=== PATIENT | female | born 1980 | race Caucasian/White ===

== ENCOUNTER 2016-10-05 13:47 | Emergency (ER) | payer SELFPAY ==
[2016-10-05 14:06] VITALS: BMI 21.2
[2016-10-05] MEDS ORDERED: KETOROLAC TROMETHAMINE 30 MG/1 ML VIAL IVPUSH ONE (14:12)
--- NOTE | 2016-10-05 14:20 | PDOC ---
History of Present Illness - General History Source: Patient - History of Present Illness Timing/Duration: reports: constant Quality: reports: severe <Marv Trotter - Last Filed: 10/05/16 19:01> <Maryam Worrell - Last Filed: 10/06/16 17:25> - General Chief Complaint: Pain, Acute Stated Complaint: ABD PAIN Time Seen by Provider: 10/05/16 14:00 Past History - Past Medical History Anemia: Yes GI Disorders: Yes (colitis) HTN: Yes - Surgical History Abdominal Surgery: Yes (gastric sleeve,TUMMY TUCK) - Psycho/Social/Smoking Cessation Hx Anxiety: No Suicidal Ideation: No Smoking History: Never smoked Have you smoked in the past 12 months: No Hx Alcohol Use: No Drug/Substance Use Hx: No Substance Use Type: None <Marv Trotter - Last Filed: 10/05/16 19:01> <Maryam Worrell - Last Filed: 10/06/16 17:25> - Past Medical History Allergies/Adverse Reactions: Allergies Allergy/AdvReac Type Severity Reaction Status Date / Time No Known Allergies Allergy Verified 10/05/16 14:04 Home Medications: Ambulatory Orders NK [No Known Home Medication] 02/08/16 Review of Systems - Review of Systems Constitutional: No: Chills, Fever ABD/GI: Yes: Nausea, Abdominal cramping. No: Constipated, Diarrhea, Vomiting : No: Dysuria, Frequency, Flank Pain, Hematuria <Marv Trotter - Last Filed: 10/05/16 19:01> *Physical Exam - Vital Signs Last Vital Signs Temp Pulse Resp BP Pulse Ox 98.1 F 65 16 104/70 100 10/05/16 14:04 10/05/16 14:04 10/05/16 14:04 10/05/16 14:04 10/05/16 14:04 - Physical Exam General Appearance: Yes: Appropriately Dressed. No: Apparent Distress HEENT: positive: Normal Voice Neck: positive: Supple Respiratory/Chest: negative: Respiratory Distress Female Pelvic Exam: positive: normal external exam, cervical os closed, normal adnexa, other (IUD visualized from os, minimal thick, white clumpy discharge adherent to vaginal mucosa c/w yeast). negative: CMT, lesions, vaginal bleeding Gastrointestinal/Abdominal: positive: Normal Bowel Sounds, Tender (to R and mid suprapubic area, NT over appy), Soft. negative: Distended, Guarding, Rebound Musculoskeletal: negative: CVA Tenderness Integumentary: positive: Dry, Warm Neurologic: positive: Fully Oriented, Alert, Normal Mood/Affect <Marv Trotter - Last Filed: 10/05/16 19:01> - Vital Signs Last Vital Signs Temp Pulse Resp BP Pulse Ox 98.2 F 67 18 108/68 100 10/05/16 18:48 10/05/16 18:48 10/05/16 18:48 10/05/16 18:48 10/05/16 18:48 <Maryam Worrell - Last Filed: 10/06/16 17:25> ED Treatment Course - LABORATORY CBC & Chemistry Diagram: 10/05/16 14:45 10/05/16 14:45 <Marv Trotter - Last Filed: 10/05/16 19:01> - LABORATORY CBC & Chemistry Diagram: 10/05/16 14:45 10/05/16 14:45 - ADDITIONAL ORDERS Additional order review: 10/05/16 14:45 RBC 3.87 MCV 67.1 L MCHC 31.5 L RDW 19.2 H D MPV 9.8 Neutrophils % 64.3 D Lymphocytes % 27.4 Monocytes % 6.9 Eosinophils % 0.9 Basophils % 0.5 - Medications Given in the ED: ED Medications Discontinued Medications Generic Name Dose Route Start Last Admin Trade Name Eddieq PRN Reason Stop Dose Admin Fluconazole 150 mg 10/05/16 14:42 10/05/16 15:15 Diflucan - PO 10/05/16 14:43 150 mg ONCE ONE Administration Sodium Chloride 1,000 mls @ 1,000 mls/hr 10/05/16 15:18 10/05/16 15:19 Normal Saline - IV 10/05/16 16:17 1,000 mls/hr ASDIR STA Administration Ketorolac Tromethamine 30 mg 10/05/16 14:12 10/05/16 15:15 Toradol Injection - IVPUSH 10/05/16 14:13 30 mg ONCE ONE Administration <Maryam Worrell - Last Filed: 10/06/16 17:25> Medical Decision Making - Medical Decision Making 10/05/16 14:12 35-year-old female, s/p IUD, history of hemorrhagic cyst, presents with severe pelvic pain that started this a.m. associated with nausea, feels like her cyst as per patient. Patient also has been having some thick, white discharge that started 4 days ago. No foul odor. States she self treated with 1 day Monistat [id number], which included an ovule and cream but states she developed external irritation that resolved when she stopped using cream. States she went to see her LINK KNITTING MACHINE OPERATOR 3 days ago who did blood work and cultures but patient still waiting for results. Patient is sexually active with male partner and denies history of STDs See exam Pelvic pain w/ vag discharge Thick white discharge in vaginal vault which is c/w mckenna, no CMT/adnexal ttp to suspect PID at this time, possibly recurrent hemorrhagic cyst, less likely uti or appy, low risk for preg as IUD in place though more at risk for ectopic -upreg -pain control -consider 1 dose diflucan for mckenna while in ED -labs including std cxs -US 10/05/16 14:55 10/05/16 15:18 10/05/16 18:53 Ultrasound read as multiple bilateral ovarian follicles/cysts with no sign of hemorrhage or debris, +small amount of free pelvic fluid. Of note, hemoglobin 8. Baseline in the past has been between 9 and 10. Patient states she is aware of hemoglobin of 8 as was told to her by her LINK KNITTING MACHINE OPERATOR recently. States she has heavy menses but not currently on iron pills for unclear reasons. Patient feels better at this time and stable for discharge with close LINK KNITTING MACHINE OPERATOR follow-up 10/05/16 19:12 10/05/16 19:13 <Marv Trotter - Last Filed: 10/05/16 19:01> *DC/Admit/Observation/Transfer <Marv Trotter - Last Filed: 10/05/16 19:01> - Attestations Physician Attestion: I reviewed the case with the mid-level practitioner and agree with the mid- level practitioner's assessment, diagnosis and disposition. <Maryam Worrell - Last Filed: 10/06/16 17:25> Diagnosis at time of Disposition: Pelvic pain - Discharge Dispostion Disposition: HOME Condition at time of disposition: Improved - Patient Instructions Printed Discharge Instructions: Ovarian Cyst, Vaginal Yeast Infection Additional Instructions: Take 600-800 mg of motrin for pain as needed and follow up with your LINK KNITTING MACHINE OPERATOR next week Print Language: [place]
[2016-10-05] MEDS ORDERED: FLUCONAZOLE 50 MG TABLET PO ONE (14:42)
[2016-10-05] MEDS ORDERED: FLUCONAZOLE 100 MG TABLET (UD) ONE (15:02)
[2016-10-05] MEDS ORDERED: KETOROLAC TROMETHAMINE 30 MG/1 ML VIAL ONE (15:02)
[2016-10-05] MEDS ORDERED: SODIUM CHLORIDE 1,000 ML IV STA (15:18)
[2016-10-05 15:50] LABS: BASOPHIL 0.5 % (0-2.0); EOSINOPHIL 0.9 % (0-4.5); MCH 21.1 pg (25.7-33.7); MCHC 31.5 g/dl (32.0-36.0); MEAN CELL VOLUME 67.1 fl (80-96); MEAN PLT VOLUME 9.8 fl (7.5-11.1); NEUTROPHILS 64.3 % (42.8-82.8); PLATELET COUNT 196 K/MM3 (134-434); RDW 19.2 % (11.6-15.6); WHITE BLOOD COUNT 5.4 K/mm3 (4.0-10.0)
[2016-10-05 15:51] LABS: URINE APPEARANCE CLEAR; URINE BILIRUBIN NEGATIVE (NEGATIVE); URINE BLOOD NEGATIVE (NEGATIVE); URINE COLOR LTYELLOW; URINE GLUCOSE (UA) NEGATIVE (NEGATIVE); URINE KETONE TRACE (NEGATIVE); URINE LEUK ESTERASE NEGATIVE (NEGATIVE); URINE NITRITE NEGATIVE (NEGATIVE); URINE PROTEIN NEGATIVE (NEGATIVE); URINE UROBILINOGEN NEGATIVE mg/dL (0.2-1.0)
[2016-10-05 16:30] LABS: ALBUMIN 4.1 g/dl (3.4-5.0); ALK PHOS 50 U/L (45-117); ANION GAP 8 (8-16); BILIRUBIN,TOTAL 0.6 mg/dL (0.2-1.0); CALCIUM 9.5 mg/dL (8.5-10.1); CO2 25 mmol/L (21-32); CREATININE 0.8 mg/dL (0.55-1.02); GLUCOSE,RANDOM 84 mg/dL (74-106); SGOT/AST 23 U/L (15-37); SGPT/ALT 29 U/L (12-78); TOT PROT 7.7 g/dl (6.4-8.2)
[2016-10-05 17:31] LABS: PLATELET ESTIMATE ADEQUATE (NORMAL)
[2016-10-05 17:32] LABS: ANISOCYTOSIS 1+; HYPOCHROMIA 2+; MICROCYTOSIS 1+
[2016-10-05 18:49] VITALS: BP 108/68; PULSE 67; TEMP 98.2
== END 2016-10-05 19:21 | disposition home or self-care (01) ==
LOC: JER 13:47
PROC: 3E0333Z Introduction of Anti-inflammatory into Peripheral Vein, Percutaneous Approach (ICD-10-PCS; principal; 2016-10-05)
PROC: 3E0337Z Introduction of Electrolytic and Water Balance Substance into Peripheral Vein, Percutaneous Approach (ICD-10-PCS; 2016-10-05)
DX: R10.2 Pelvic and perineal pain (principal); D64.9 Anemia, unspecified; I10 Essential (primary) hypertension; Z98.84 Bariatric surgery status; K52.9 Noninfective gastroenteritis and colitis, unspecified
CPT/HCPCS: 36415; 76830-TC; 76856-TC; 80053; 81003; 84703; 85025; 87491; 87591; 99283-25

== ENCOUNTER 2017-03-27 12:37 | Emergency (ER) | payer OTHER ==
[2017-03-27 12:53] VITALS: BP 106/59; PULSE 79; TEMP 97.5; BMI 20.9
--- NOTE | 2017-03-27 14:31 | PDOC ---
History of Present Illness - General Chief Complaint: Lightheaded Stated Complaint: DIZZINESS (REFERRED) Time Seen by Provider: 03/27/17 14:10 History Source: Patient Exam Limitations: No Limitations - History of Present Illness Initial Comments: 03/27/17 14:24 Patient is a [36-year-old female with history of anemia denies any other significant medical history currently takes iron daily presents for evaluation of dizziness, cough, vision changes, palpitations, occipital headache, flank pain, tingling to her upper extremities for 3 days. Patient denies any chest pain or shortness of breath, no jaw pain, no upper back pain. No nausea vomiting or diarrhea does have a moist cough. Her coworker was diagnosed with the flu. Patient was initially seen at urgent care glucose was 69 EKG was normal with IN 108 QRS of 86 MS. Sinus rhythm with a normal EKG.] Past Medical History: [Denies]. Allergies: No known allergies Medications: [Iron] Family History: Non-contributory Social History: Denies smoking, alcohol use, or IVDU Vital signs on arrival are [notable for pulse of 79.] Review of Systems GENERAL/CONSTITUTIONAL: [No fever or chills. No weakness. No weight change.] HEAD, EYES, EARS, NOSE AND THROAT: [No change in vision. No ear pain or discharge. No sore throat. ] CARDIOVASCULAR: [No chest pain or shortness of breath.] RESPIRATORY: [No cough, wheezing, or hemoptysis.] GASTROINTESTINAL: [No nausea, vomiting, diarrhea or constipation. No rectal bleeding.] GENITOURINARY: [No dysuria, frequency, or change in urination.] MUSCULOSKELETAL: [No joint or muscle swelling or pain. No neck or back pain.] SKIN AND BREASTS: [No rash or easy bruising.] NEUROLOGIC: [No headache, vertigo, loss of consciousness, or loss of sensation.] PSYCHIATRIC: [No depression or anxiety.] ENDOCRINE: [No increased thirst. No abnormal weight change.] HEMATOLOGIC/LYMPHATIC: [No anemia, easy bleeding, or history of blood clots.] ALLERGIC/IMMUNOLOGIC: [No hives or skin allergy. No latex allergy.] Physical Exam: GENERAL: [The patient is awake, alert, and fully oriented, in no acute distress. ] HEAD: [Normal with no signs of trauma.] EYES: [Pupils equal, round and reactive to light, extraocular movements intact, sclera anicteric, conjunctiva clear.] ENT: [Ears normal, nares patent, oropharynx clear without exudates. Moist mucous membranes. No uvula deviation] NECK: [Normal range of motion, supple without lymphadenopathy, JVD, or masses.] LUNGS: [Breath sounds equal, clear to auscultation bilaterally. No wheezes, and no crackles.] HEART: [Regular rate and rhythm, normal S1 and S2 without murmur, rub or gallop. ] ABDOMEN: [Soft, nontender, normoactive bowel sounds. No guarding, no rebound. No masses. No bruising or abrasions] RECTAL : [Guaiac negative, normal rectal tone.] MUSCULOSKELETAL: [Normal range of motion, no edema. No clubbing or cyanosis. No cords, erythema, or tenderness. No CVA Tenderness with fist.] NEUROLOGICAL: [Cranial nerves II through XII grossly intact. Normal speech, normal gait. Romberg negative] PSYCH: [Normal mood, normal affect.] SKIN: [Warm, Dry, normal turgor, no rashes or lesions noted.] Past History - Past Medical History Allergies/Adverse Reactions: Allergies Allergy/AdvReac Type Severity Reaction Status Date / Time No Known Allergies Allergy Verified 03/27/17 12:46 Home Medications: Ambulatory Orders NK [No Known Home Medication] 02/08/16 Anemia: Yes COPD: No GI Disorders: Yes (colitis) HTN: Yes Psychiatric Problems: Yes (Anxiety) - Surgical History Abdominal Surgery: Yes (gastric sleeve,TUMMY TUCK) - Immunization History Immunization Up to Date: Yes - Suicide/Smoking/Psychosocial Hx Smoking History: Never smoked Have you smoked in the past 12 months: No Information on smoking cessation initiated: No Hx Alcohol Use: No Drug/Substance Use Hx: No Substance Use Type: None *Physical Exam - Vital Signs Last Vital Signs Temp Pulse Resp BP Pulse Ox 97.5 F L 79 17 106/59 100 03/27/17 12:47 03/27/17 12:47 03/27/17 12:47 03/27/17 12:47 03/27/17 12:47 ED Treatment Course - LABORATORY CBC & Chemistry Diagram: 03/27/17 14:45 03/27/17 14:45 Medical Decision Making - Medical Decision Making 03/27/17 14:32 A/P: Patient here for evaluation of dizziness, numbness and tingling to hands, cough, was supposed to influenza. Will perform urinalysis, urine culture, CBC, CMP, rapid influenza. Consider CT scan of head is negative 03/27/17 16:50 Laboratory Results - last 24 hr 03/27/17 03/27/17 03/27/17 14:45 14:45 14:45 WBC 6.8 RBC 4.37 Hgb 11.0 D Hct 34.7 D MCV 79.4 L MCH 25.1 L D MCHC 31.6 L RDW 13.9 D Plt Count 127 L D MPV 9.9 Neutrophils % 62.0 Lymphocytes % 27.1 Monocytes % 9.6 Eosinophils % 1.1 Basophils % 0.2 Sodium 139 Potassium 3.9 Chloride 106 Carbon Dioxide 26 Anion Gap 7 L BUN 12 Creatinine 1.0 Creat Clearance w eGFR > 60 Random Glucose 84 Calcium 8.7 Total Bilirubin 0.6 AST 19 ALT 27 Alkaline Phosphatase 57 Creatine Kinase 105 Troponin I < 0.02 Total Protein 7.9 Albumin 4.3 Urine Color Straw Urine Appearance Clear Urine pH 7.0 Ur Specific [place] 1.011 Urine Protein Negative Urine Glucose (UA) Negative Urine Ketones Negative Urine Blood Negative Urine Nitrite Negative Urine Bilirubin Negative Urine Urobilinogen Negative Ur Leukocyte Esterase Negative Urine HCG, Qual Negative CT scan is negative for acute intracranial pathology. Rapid influenza is negative. TSH was added and still pending cardiac enzymes unremarkable. 03/27/17 17:34 TSH is normal. I will discharge patient home with strict follow-up instructions for tomorrow patient will need further evaluation for her anemia. No headache, no nausea vomiting, no unsteady gait. I discussed the physical exam findings, ancillary test results and final diagnoses with the patient. I answered all of the patient's questions. The patient was satisfied with the care received and felt comfortable with the discharge plan and treatment plan. The patient will call to arrange follow-up and will return to the Emergency Department with any new, persistent or worsening symptoms. 03/27/17 19:21 *DC/Admit/Observation/Transfer Diagnosis at time of Disposition: Anemia Qualifiers: Anemia type: iron deficiency Iron deficiency anemia type: other iron deficiency Qualified Code(s): D50.8 - Other iron deficiency anemias - Discharge Dispostion Disposition: HOME Condition at time of disposition: Stable Admit: No - Referrals Referrals: Molina Bass MD [Staff Physician] - - Patient Instructions Additional Instructions: Follow up tomorrow in the office of Dr. Bass If any chest pain, shortness of breath, increased headache, or any other concerns return to ER - Post Discharge Activity Forms/Work/School Notes: Back to Work
[2017-03-27 14:53] LABS: BASO % 0.2 % (0-2.0); EOS % 1.1 % (0-4.5); HEMATOCRIT 34.7 % (32.4-45.2); LYMPH % 27.1 % (8-40); MCH 25.1 pg (25.7-33.7); MCHC 31.6 g/dl (32.0-36.0); MEAN CELL VOLUME 79.4 fl (80-96); MEAN PLT VOLUME 9.9 fl (7.5-11.1); MONO % 9.6 % (3.8-10.2); PLATELET COUNT 127 K/MM3 (134-434); RBC 4.37 M/mm3 (3.60-5.2); RDW 13.9 % (11.6-15.6); WHITE BLOOD COUNT 6.8 K/mm3 (4.0-10.0)
[2017-03-27 14:57] LABS: ADD RBC MORPHOLOGY YES
[2017-03-27 14:58] LABS: HCG,QUALITATIVE URINE NEGATIVE; URINE APPEARANCE CLEAR; URINE BILIRUBIN NEGATIVE (NEGATIVE); URINE BLOOD NEGATIVE (NEGATIVE); URINE COLOR STRAW; URINE GLUCOSE (UA) NEGATIVE (NEGATIVE); URINE KETONE NEGATIVE (NEGATIVE); URINE LEUK ESTERASE NEGATIVE (NEGATIVE); URINE NITRITE NEGATIVE (NEGATIVE); URINE PROTEIN NEGATIVE (NEGATIVE); URINE UROBILINOGEN NEGATIVE mg/dL (0.2-1.0)
[2017-03-27 15:30] LABS: ALBUMIN 4.3 g/dl (3.4-5.0); ANION GAP 7 (8-16); BLOOD UREA NITROGEN 12 mg/dL (7-18); CALCIUM 8.7 mg/dL (8.5-10.1); CHLORIDE 106 mmol/L (98-107); CO2 26 mmol/L (21-32); GLUCOSE,RANDOM 84 mg/dL (74-106); POTASSIUM 3.9 mmol/L (3.5-5.1); SGOT/AST 19 U/L (15-37); SODIUM 139 mmol/L (136-145)
[2017-03-27 16:16] LABS: ALK PHOS 57 U/L (45-117); BILIRUBIN,TOTAL 0.6 mg/dL (0.2-1.0); SGPT/ALT 27 U/L (12-78); TOT PROT 7.9 g/dl (6.4-8.2)
[2017-03-27 16:56] LABS: PLATELET ESTIMATE SLT DECREASE
[2017-03-27] MEDS ORDERED: IBUPROFEN 600 MG TABLET (FP) PO ONE ×2 (17:57→17:58)
== END 2017-03-27 18:01 | disposition home or self-care (01) ==
LOC: JERFT 12:37
DX: D50.8 Other iron deficiency anemias (principal)
CPT/HCPCS: 36415; 70450-TC; 80053; 81003; 82550; 84443; 84484; 84703; 85025; 87086; 87804; 99281-25

== ENCOUNTER 2018-01-23 14:39 | Observation (INO) | payer BC, OTHER ==
--- NOTE | 2018-01-23 14:59 | PDOC ---
Rapid Medical Evaluation Chief Complaint: Pain, Acute Time Seen by Provider: 01/23/18 14:53 Medical Evaluation: Allergies Allergy/AdvReac Type Severity Reaction Status Date / Time No Known Allergies Allergy Verified 01/23/18 14:51 Vital Signs Temp Pulse Resp BP Pulse Ox 99.0 F 79 16 96/44 L 100 01/23/18 14:51 01/23/18 14:51 01/23/18 14:51 01/23/18 14:51 01/23/18 14:51 01/23/18 14:55 I have performed a brief in-person evaluation of this patient. The patient presents with a chief complaint of: h/o colitis present with LLQ pain, nausea and diarrhea Pertinent physical exam findings:A&O x 3. afebrile I have ordered the following: cbc,cmp, UA, Uhcg The patient will proceed to the ED for further evaluation. Discharge Disposition - Diagnosis Colitis, LLQ abdominal pain - Referrals - Patient Instructions - Post Discharge Activity
[2018-01-23 15:42] LABS: BASO % 0.5 % (0-2.0); EOS % 1.4 % (0-4.5); HEMATOCRIT 25.6 % (32.4-45.2); HEMOGLOBIN 7.7 GM/dL (10.7-15.3); LYMPH % 37.1 % (8-40); MCHC 29.9 g/dl (32.0-36.0); MEAN CELL VOLUME 67.1 fl (80-96); MEAN PLT VOLUME 10.2 fl (7.5-11.1); MONO % 13.5 % (3.8-10.2); NEUT % 47.5 % (42.8-82.8); PLATELET COUNT 147 K/MM3 (134-434); RBC 3.82 M/mm3 (3.60-5.2); RDW 19.5 % (11.6-15.6); WHITE BLOOD COUNT 3.2 K/mm3 (4.0-10.0)
[2018-01-23 15:44] LABS: HCG,QUALITATIVE URINE Negative
[2018-01-23 16:04] LABS: URINE APPEARANCE CLEAR; URINE BILIRUBIN NEGATIVE (<2.0 mg/dL); URINE COLOR YELLOW; URINE GLUCOSE (UA) NEGATIVE (NEGATIVE); URINE KETONE NEGATIVE (NEGATIVE); URINE LEUK ESTERASE NEGATIVE (NEGATIVE); URINE NITRITE NEGATIVE (NEGATIVE); URINE PROTEIN NEGATIVE (NEGATIVE)
[2018-01-23] MEDS ORDERED: KETOROLAC TROMETHAMINE 30 MG/1 ML VIAL IVPUSH ONE (16:06)
[2018-01-23] MEDS ORDERED: SODIUM CHLORIDE 1,000 ML IV STA (16:06)
[2018-01-23 16:12] LABS: ALBUMIN 3.7 g/dl (3.4-5.0); ALK PHOS 51 U/L (45-117); ANION GAP 7 MMOL/L (8-16); BILIRUBIN,TOTAL 0.4 mg/dL (0.2-1); BLOOD UREA NITROGEN 11 mg/dL (7-18); CALCIUM 8.6 mg/dL (8.5-10.1); CHLORIDE 106 mmol/L (98-107); CO2 26 mmol/L (21-32); CREATININE 0.8 mg/dL (0.55-1.3); GLUCOSE,RANDOM 80 mg/dL (74-106); POTASSIUM 3.8 mmol/L (3.5-5.1); SGOT/AST 21 U/L (15-37); SGPT/ALT 20 U/L (13-61); SODIUM 138 mmol/L (136-145); TOT PROT 7.1 g/dl (6.4-8.2)
[2018-01-23] MEDS ORDERED: KETOROLAC TROMETHAMINE 30 MG/1 ML VIAL ONE (16:41)
--- NOTE | 2018-01-23 18:05 | PDOC ---
History of Present Illness - General Chief Complaint: Pain, Acute Stated Complaint: PAIN Time Seen by Provider: 01/23/18 14:53 History Source: Patient Exam Limitations: No Limitations - History of Present Illness Travel History: No Initial Comments: 01/23/18 17:01 37-year-old female presents to ED with complaints of left lower quadrant pain associated with diarrhea for the past 4 days. Patient also complaining of mild nausea. Patient states has had regular menses and is on her last therefore cycle presently. Patient denies fever, chills, urinary complaints, back pain vaginal discharge, upper abdominal pain. Patient does state history of colitis and states symptoms of sharp cramping is similar to previous episode in 2016. Patient states history of anemia but does not take iron pills secondary to constipation and abdominal pain side effect. Timing/Duration: reports: getting worse Quality: reports: moderate, cramping, sharpness Abdominal Pain Onset Location: reports: LLQ Pain Radiation: reports: no radiation Activities at Onset: reports: none Aggravating Factors: improves with: None Alleviating Factors: improves with: None Past History - Past Medical History Allergies/Adverse Reactions: Allergies Allergy/AdvReac Type Severity Reaction Status Date / Time No Known Allergies Allergy Verified 01/23/18 14:51 Home Medications: Ambulatory Orders NK [No Known Home Medication] 02/08/16 Anemia: Yes COPD: No GI Disorders: Yes (colitis) HTN: Yes Psychiatric Problems: Yes (Anxiety) - Surgical History Abdominal Surgery: Yes (gastric sleeve,TUMMY TUCK) - Immunization History Immunization Up to Date: Yes - Suicide/Smoking/Psychosocial Hx Smoking History: Never smoked Have you smoked in the past 12 months: No Information on smoking cessation initiated: No Hx Alcohol Use: No Drug/Substance Use Hx: No Substance Use Type: None Patient Lives Alone: No Lives with/in: spouse/SO Abd/GI Specific PMHX - Complaint Specific PMHX Colitis: Yes Review of Systems - Review of Systems Able to Perform ROS?: No Is the patient limited Polish proficient: No Constitutional: No: Symptoms Reported HEENTM: No: Symptoms Reported Respiratory: No: Symptoms reported Cardiac (ROS): No: Symptoms Reported ABD/GI: No: Symptoms Reported : No: Symptoms Reported Musculoskeletal: No: Symptoms Reported Integumentary: No: Symptoms Reported Neurological: No: Symptoms reported Endocrine: No: Symptoms Reported *Physical Exam - Vital Signs Last Vital Signs Temp Pulse Resp BP Pulse Ox 99.0 F 71 16 117/87 100 01/23/18 14:51 01/23/18 17:48 01/23/18 17:48 01/23/18 17:48 01/23/18 17:48 - Physical Exam General Appearance: Yes: Nourished, Appropriately Dressed. No: Apparent Distress HEENT: positive: EOMI, MARY. negative: Pale Conjunctivae Neck: positive: Supple Respiratory/Chest: positive: Lungs Clear, Normal Breath Sounds. negative: Respiratory Distress, Accessory Muscle Use Cardiovascular: positive: Regular Rhythm, Regular Rate. negative: Murmur Gastrointestinal/Abdominal: positive: Soft. negative: Tenderness Musculoskeletal: negative: CVA Tenderness Extremity: positive: Normal Capillary Refill. negative: Pedal Edema Integumentary: positive: Normal Color, Warm, Moist Neurologic: positive: Normal Mood/Affect, Motor Strength 5/5 Moderate Sedation - Procedure Monitoring Vital Signs: Procedure Monitoring Vital Signs Temperature 99.0 F 01/23/18 14:51 Pulse Rate 71 01/23/18 17:48 Respiratory Rate 16 01/23/18 17:48 Blood Pressure 117/87 01/23/18 17:48 O2 Sat by Pulse Oximetry (%) 100 01/23/18 17:48 ED Treatment Course - LABORATORY CBC & Chemistry Diagram: 01/23/18 15:30 01/23/18 15:30 - ADDITIONAL ORDERS Additional order review: Laboratory Results 01/23/18 01/23/18 15:30 15:30 Sodium 138 Potassium 3.8 Chloride 106 Carbon Dioxide 26 Anion Gap 7 L BUN 11 Creatinine 0.8 Creat Clearance w eGFR > 60 Random Glucose 80 Calcium 8.6 Total Bilirubin 0.4 AST 21 ALT 20 Alkaline Phosphatase 51 Total Protein 7.1 Albumin 3.7 Urine Color Yellow Urine Appearance Clear Urine pH 5.0 D Ur Specific [place] 1.024 Urine Protein Negative Urine Glucose (UA) Negative Urine Ketones Negative Urine Blood Negative Urine Nitrite Negative Urine Bilirubin Negative Urine Urobilinogen 2.0 H Ur Leukocyte Esterase Negative Urine HCG, Qual Negative 01/23/18 15:30 RBC 3.82 MCV 67.1 L MCHC 29.9 L RDW 19.5 H MPV 10.2 Neutrophils % 47.5 D Lymphocytes % 37.1 D Monocytes % 13.5 H Eosinophils % 1.4 Basophils % 0.5 - RADIOLOGY Radiology Studies Ordered: Category Date Time Status ABDOMEN & PELVIS CT WITH CONTR [CT] Stat CT Scan 01/23/18 16:08 Ordered - Medications Given in the ED: ED Medications Discontinued Medications Generic Name Dose Route Start Last Admin Trade Name Eddieq PRN Reason Stop Dose Admin Sodium Chloride 1,000 mls @ 1,000 mls/hr 01/23/18 16:06 01/23/18 16:48 Normal Saline - IV 01/23/18 17:05 1,000 mls/hr ASDIR STA Administration Ketorolac Tromethamine 30 mg 01/23/18 16:06 01/23/18 16:48 Toradol Injection - IVPUSH 01/23/18 16:07 30 mg ONCE ONE Administration Medical Decision Making - Medical Decision Making 01/23/18 17:12 Chief complaint: Left lower quadrant pain with diarrhea for the past 4 days. Patient with history of colitis. Exam: Left lower quadrant tenderness no rebound no guarding, vital stable Plan: Labs, urine, IV fluids, CAT scan, 01/23/18 18:13 Laboratory Tests 09/08/15 09/19/15 10/05/16 06:00 21:30 14:45 WBC Hgb 11.3 D 10.8 8.2 L D Hct MCV MCH MCHC RDW Monocytes % Sodium Potassium Chloride Carbon Dioxide Anion Gap BUN Creatinine Random Glucose Calcium AST ALT Alkaline Phosphatase Total Protein Albumin Urine Bilirubin Urine Urobilinogen Ur Leukocyte Esterase Urine HCG, Qual 03/27/17 01/23/18 01/23/18 14:45 15:30 15:30 WBC 3.2 L Hgb 11.0 D 7.7 L Hct 25.6 L D MCV 67.1 L MCH 20.0 L D MCHC 29.9 L RDW 19.5 H Monocytes % 13.5 H Sodium Potassium Chloride Carbon Dioxide Anion Gap BUN Creatinine Random Glucose Calcium AST ALT Alkaline Phosphatase Total Protein Albumin Urine Bilirubin Negative Urine Urobilinogen 2.0 H Ur Leukocyte Esterase Negative Urine HCG, Qual Negative 01/23/18 15:30 WBC Hgb Hct MCV MCH MCHC RDW Monocytes % Sodium 138 Potassium 3.8 Chloride 106 Carbon Dioxide 26 Anion Gap 7 L BUN 11 Creatinine 0.8 Random Glucose 80 Calcium 8.6 AST 21 ALT 20 Alkaline Phosphatase 51 Total Protein 7.1 Albumin 3.7 Urine Bilirubin Urine Urobilinogen Ur Leukocyte Esterase Urine HCG, Qual Patient has no complaints of fatigue, weakness, shortness of breath, and understands by not taking her iron and eating high iron foods, the anemia will continue and may worsen *DC/Admit/Observation/Transfer Diagnosis at time of Disposition: Colitis, LLQ abdominal pain - Referrals - Patient Instructions - Post Discharge Activity
[2018-01-23 19:43] LABS: ANISOCYTOSIS 1+
[2018-01-23 19:44] LABS: PLATELET ESTIMATE ADEQUATE
[2018-01-23] MEDS ORDERED: ONDANSETRON 4 MG/2 ML VIAL IVPUSH ONE (19:56)
[2018-01-23] MEDS ORDERED: ONDANSETRON 4 MG/2 ML VIAL ONE (20:44)
--- NOTE | 2018-01-23 20:46 | PDOC ---
*Physical Exam - Vital Signs Last Vital Signs Temp Pulse Resp BP Pulse Ox 99.0 F 71 16 117/87 100 01/23/18 14:51 01/23/18 17:48 01/23/18 17:48 01/23/18 17:48 01/23/18 17:48 ED Treatment Course - LABORATORY CBC & Chemistry Diagram: 01/23/18 15:30 01/23/18 15:30 - ADDITIONAL ORDERS Additional order review: Laboratory Results 01/23/18 01/23/18 15:30 15:30 Sodium 138 Potassium 3.8 Chloride 106 Carbon Dioxide 26 Anion Gap 7 L BUN 11 Creatinine 0.8 Creat Clearance w eGFR > 60 Random Glucose 80 Calcium 8.6 Total Bilirubin 0.4 AST 21 ALT 20 Alkaline Phosphatase 51 Total Protein 7.1 Albumin 3.7 Urine Color Yellow Urine Appearance Clear Urine pH 5.0 D Ur Specific [place] 1.024 Urine Protein Negative Urine Glucose (UA) Negative Urine Ketones Negative Urine Blood Negative Urine Nitrite Negative Urine Bilirubin Negative Urine Urobilinogen 2.0 H Ur Leukocyte Esterase Negative Urine HCG, Qual Negative 01/23/18 15:30 RBC 3.82 MCV 67.1 L MCHC 29.9 L RDW 19.5 H MPV 10.2 Neutrophils % 47.5 D Lymphocytes % 37.1 D Monocytes % 13.5 H Eosinophils % 1.4 Basophils % 0.5 - RADIOLOGY Radiology Studies Ordered: Category Date Time Status ABDOMEN US -LIMITED [US] Stat Ultrasound 01/23/18 19:53 Ordered - Medications Given in the ED: ED Medications Discontinued Medications Generic Name Dose Route Start Last Admin Trade Name Freq PRN Reason Stop Dose Admin Sodium Chloride 1,000 mls @ 1,000 mls/hr 01/23/18 16:06 01/23/18 16:48 Normal Saline - IV 01/23/18 17:05 1,000 mls/hr ASDIR STA Administration Ketorolac Tromethamine 30 mg 01/23/18 16:06 01/23/18 16:48 Toradol Injection - IVPUSH 01/23/18 16:07 30 mg ONCE ONE Administration Medical Decision Making - Medical Decision Making Patient signed out to me by BASILIO Campoverde. Patient reassessed and appears comfortable CT A/P resulted with no evidence of colitis. Small amount of pericholecystic fluid noted (uncertain if due to IV fluid administration) On PE, patient with +TTP along RUQ though states at rest, does not feel pain there Patient sent for RUQ sono to r/o cholecystitis 01/23/18 20:29 RUQ sono shows no gallstones, small amount of sludge, trace amount of pericholecystic fluid Given equivocal findings, will admit patient as observation for HIDA scan 01/23/18 22:21 *DC/Admit/Observation/Transfer Diagnosis at time of Disposition: LLQ abdominal pain, RUQ abdominal pain - Discharge Dispostion Decision to Admit order: Yes - Referrals - Patient Instructions - Post Discharge Activity
--- NOTE | 2018-01-24 00:28 | HP ---
CHIEF COMPLAINT: abd pain PCP: HISTORY OF PRESENT ILLNESS: Patient is a 37 y/o F w/ PMHx colitis in 2016, chronic anemia non-compliant w/ iron therapy, abdominoplasty in 2008, gastric sleeve Sx in 2016 performed in [facility] 2 months prior to onset of colitis, now p/w 1 week dull continuous abdominal pain 8/10 in severity primarily in LLQ but present throughout abdomen. Additionally complains of watery diarrhea and nausea over the same period, limited PO intake d/t fear of provoking diarrhea. LMP began 5 days ago and ended today with heavier passage of blood than usual. No f/c, no CP , no SOB, no shoulder pain. In ED received 1L NS bolus, ketorolac, zofran. RUQ US demonstrated no cholelithiasis, a small amount of biliary sludge, and trace pericholecystic fluid. CT a/p demonstrated no enterocolitis, identified gastric sleeve post-surgical changes, and found a small amount of pericholecystic fluid . CBC showed Hb 7.7 and WBC 3.2, otherwise labs and VS wnl. ER course was notable for: (1) US and CT equivocal for possible cholecystitis (2) (3) Recent Travel: PAST MEDICAL HISTORY: As per HPI PAST SURGICAL HISTORY: As per HPI Social History: Smoking: current occasional cigar smoker Alcohol: none Drugs: none Family History: Allergies No Known Allergies Allergy (Verified 01/23/18 14:51) HOME MEDICATIONS: Home Medications Medication Instructions Recorded NK [No Known Home Medication] 02/08/16 REVIEW OF SYSTEMS As per HPI PHYSICAL EXAMINATION Vital Signs - 24 hr 01/23/18 01/23/18 14:51 17:48 Temperature 99.0 F Pulse Rate 79 Pulse Rate [ 71 Apical] Respiratory 16 16 Rate Blood Pressure 96/44 L Blood Pressure 117/87 [Right] O2 Sat by Pulse 100 100 Oximetry (%) GENERAL: A&O x 3, NAD, no pallor, no dizziness, no fatigue, no lightheadedness, no anemic symptoms generally HEAD: NC/AT EYES: PERRLA, EOMI EARS, NOSE, THROAT: Ears normal, nares patent, oropharynx clear without exudates. Moist mucous membranes. NECK: Normal range of motion, supple without lymphadenopathy, JVD, or masses. LUNGS: CTA b/l HEART: RRR no m/r/g ABDOMEN: +bs, soft, non-distended, diffusely tender including RUQ and epigastrum , negative Steele's sign MUSCULOSKELETAL: Normal range of motion at all joints. No bony deformities or tenderness. No CVA tenderness. UPPER EXTREMITIES: 2+ pulses, warm, well-perfused. No cyanosis. No clubbing. No peripheral edema. LOWER EXTREMITIES: 2+ pulses, warm, well-perfused. No calf tenderness. No peripheral edema. NEUROLOGICAL: care center manager, motor, sensory systems without focal deficit PSYCHIATRIC: Cooperative. Good eye contact. Appropriate mood and affect. SKIN: Warm, dry, normal turgor, no rashes or lesions noted, normal capillary refill. Laboratory Results - last 24 hr 01/23/18 01/23/18 01/23/18 15:30 15:30 15:30 WBC 3.2 L RBC 3.82 Hgb 7.7 L Hct 25.6 L D MCV 67.1 L MCH 20.0 L D MCHC 29.9 L RDW 19.5 H Plt Count 147 MPV 10.2 Absolute Neuts (auto) 1.5 Neutrophils % 47.5 D Lymphocytes % 37.1 D Monocytes % 13.5 H Eosinophils % 1.4 Basophils % 0.5 Nucleated RBC % 0 Hypochromia 2+ Platelet Estimate Adequate Anisocytosis 1+ Sodium 138 Potassium 3.8 Chloride 106 Carbon Dioxide 26 Anion Gap 7 L BUN 11 Creatinine 0.8 Creat Clearance w eGFR > 60 Random Glucose 80 Calcium 8.6 Total Bilirubin 0.4 AST 21 ALT 20 Alkaline Phosphatase 51 Total Protein 7.1 Albumin 3.7 Urine Color Yellow Urine Appearance Clear Urine pH 5.0 D Ur Specific [place] 1.024 Urine Protein Negative Urine Glucose (UA) Negative Urine Ketones Negative Urine Blood Negative Urine Nitrite Negative Urine Bilirubin Negative Urine Urobilinogen 2.0 H Ur Leukocyte Esterase Negative Urine HCG, Qual Negative ASSESSMENT/PLAN: 37 y/o F w/ PMHx colitis and anemia p/w 1 week abdominal pain, nausea, and diarrhea. Initial w/u reveals RUQ tenderness and small volume pericholecystic fluid. #abd pain/n/d -most likely Dx viral gastroenteritis -equivocal imaging studies warrant HIDA study for r/o acute cholecystitis -pericholecystic fluid may be result of questionable gastric sleeve procedure -warrants obs admission for r/o cholecystitis -surgery consulted, will see patient in AM -NPO per surgery instructions -Zofran PRN -LR @ 75 #anemia -asymptomatic, likely chronic, patient has just completed unusually heavy menstruation -FOBT pending -monitor CBC and transfuse if <7 -resume iron therapy when eligible for PO intake -counseled on adherence to iron therapy #FEN -LR @ 75 -monitor and replete lytes -NPO pending surgical evaluation #PPx -SCDs, no pharmacologic AC pending surgical evaluation -GI: not indicated #code -full #dispo -obs Visit type - Emergency Visit Emergency Visit: Yes Care time: The patient presented to the Emergency Department on the above date and was hospitalized for further evaluation of their emergent condition. - New Patient This patient is new to me today: Yes Date on this admission: 01/24/18 - Critical Care Critical Care patient: No
[2018-01-24] MEDS: LACTATED RINGERS SOLUTION 1,000 ML IV SCH (00:44)
--- NOTE | 2018-01-24 01:45 | PN ---
Teaching Attending Note Name of Resident: Jake Barbosa ATTENDING PHYSICIAN STATEMENT I saw and evaluated the patient. I reviewed the resident's note and discussed the case with the resident. I agree with the resident's findings and plan as documented. SUBJECTIVE: Seen and examined; please see resident note for further historical details. In summation this is a 37 y/o female with a PMH of anemia, thrombocytopenia, gastric sleeve 2016. She presents with 1 week of waxing and waning abdominal pain that is in the RUQ and LLQ; when I spoke with her, though, it is mostly restricted to the RUQ. She agrees that the pain has been present for about a week and that nothing makes it better but that it does get worse with eating and that she has had to take smaller meals due to this. she has no other complaints tonight. In reviewing her chart she has had colitis here in the past in 2016 after the aforementioned surgical procedure2 months prior in the [place]. She is hemodynamically stable and afebrile without any white count. CT shows sludging and pericholecystic fluid without thickened jean and normal CBD; US is equivicol. Surgery was phoned by the ER and they requested that the patient be placed NPO and will see her in AM. DEBBIE ordered. Never had prior abdominal procedures. Admitting to medicine with surgical consultation. 10 sys ROS done and negative aside from HPI PMH and PSH reviewed FH asked and noncontributory Social history denies alcohol or tobacco abuse OBJECTIVE: Vs, labs, imaging reviewed NAD, AAO, resting in bed RRR s1/2 no mgr Lungs CTAB with sym expansion No organomegaly; Right side is tender to palpation, nondistended, negative burnham's sign. CN2-12 wnl, no fnd NC AT EOMI PERRLA Normal mood, appropriate behavior Labs show Microcytic anemia with mcv 60s and hb 7s; borderline throbocytopenia. WBC wnl, no neutrophilia. ESR/CRP, anemia workup pending. CT reviewed; shows gastric sleeve procedure and a small amount of pericholecystic fluid which is artifact vs. pathological. US reviewed; equivical to CT. Trace amount of pericholecystic fluid. EKG reviewed ASSESSMENT AND PLAN: This is a 37 y/o CF presenting with 1 week of waxing and waning abdominal pain found tohave pericholecystic fluid but no white count, no fever. Needs HIDA to r/o acute GB pathology. 1) Abdominal Pain, r/o cholecystitis -As no wbc, no fever, no radiographic proof of definitive infection and only sludge without stones, we will go ahead and hold off on abx; of course will cover if clinically warranted. -HIDA ordered; NPO per sgy. Surgical consult in AM. -Monitor VS, trend CBC. PRN APAP, Zofran -Commented that the trace pericholecystic fluid could be artifact. 2) Chronic anemia -Checking anemia workup; pending. Keep hb >7 3) S/P sleeve gastrectomy -Monitor; when not NPO small meals 4) Borderline thrombocytopenia -Also seen in 2012 admission; no bleeding now. She should followup with her primary care. Trend CBC while inpatient. Avoid chemical anticoagulation. FENA -LR@75 -Monitor and replace PRN -NPO -As tolerated Full Code
[2018-01-24 07:53] LABS: INR 0.96 (0.83-1.09); PROTHROMBIN TIME (PATIENT) 11.3 SEC (9.7-13.0)
--- NOTE | 2018-01-24 08:26 | PN ---
Physical Exam: SUBJECTIVE: Patient is a 37 y/o female with a history of colitis and anemia who is admitted for cholecystitis. Patient did not have any episodes of diarrhea overnight. She reports she still has the pain and is hungry. Patient to be evaluated by surgery this morning. OBJECTIVE: Vital Signs Temperature 98.1 F 01/24/18 06:51 Pulse Rate 62 01/24/18 06:51 Respiratory Rate 18 01/24/18 06:51 Blood Pressure 104/61 01/24/18 06:51 O2 Sat by Pulse Oximetry (%) 100 01/24/18 06:51 GENERAL: The patient is awake, alert, and fully oriented, in no acute distress. HEAD: Normal with no signs of trauma. EYES: PERRL, extraocular movements intact. LUNGS: Breath sounds equal, clear to auscultation bilaterally, no wheezes, no crackles, no accessory muscle use. HEART: Regular rate and rhythm, S1, S2 without murmur, rub or gallop. ABDOMEN: positive bowel sounds, tendernes sin RUQ and LUQ, positive murphys sign , positive rebound, CVA tenderness bilaterally RECTAL: no external lesions, no internal masses felt, no fissures noted, no blood on exam EXTREMITIES: 2+ pulses, warm, well-perfused, no edema. NEUROLOGICAL: Cranial nerves II through XII grossly intact. Normal speech, gait not observed. PSYCH: Normal mood, normal affect. SKIN: Warm, dry, normal turgor, no rashes or lesions noted CBC, BMP 01/24/18 07:05 01/24/18 07:05 Active Medications Lactated Ringer's (Lactated Ringers Solution) 1,000 mls @ 75 mls/hr IV ASDIR [facility] Last Admin: 01/24/18 00:44 Dose: 75 mls/hr Ondansetron HCl (Zofran Injection) 4 mg IVPUSH Q6H PRN PRN Reason: NAUSEA ASSESSMENT/PLAN: Patient is a 37 y/o female with a history of colitis and anemia who is admitted for cholecystitis. #abd pain, likely 2/2 to cholecystitis vs colic - Abd CT: mild periorital edema of pericholecystic fluid accumulation, small to moderate nonspecific free fluid with cul de sac, 2 mm nonobstruction left renal calculs - Abd US: no evidence of choelithiasis, small amount of inspissated bile/ sludge at base of gallbladder, possible acute cholecystitis - HIDA scan - filling of gallbladder excludes acute cystic duct obstruction - discussed with Dr. Cristina, does not believe it is cholecystitis and unlikely to be surgery candidate - full liquid diet, advance as tolerated - hx of gastric sleeve #anemia - asymptomatic - f/u iron studies - hgb 7.7 - f/u OBGYN consult, Dr. Lynn - FOBT negative #gi ppx - Protonix 40 daily #dvt ppx - SCD's Dispo: likely tomorrow, discuss with OBGYN Visit type - Emergency Visit Emergency Visit: No - New Patient This patient is new to me today: No - Critical Care Critical Care patient: No
[2018-01-24 08:38] LABS: ANION GAP 8 MMOL/L (8-16); BLOOD UREA NITROGEN 11 mg/dL (7-18); CALCIUM 8.3 mg/dL (8.5-10.1); CHLORIDE 109 mmol/L (98-107); CO2 24 mmol/L (21-32); CREATININE 0.9 mg/dL (0.55-1.3); GLUCOSE,RANDOM 74 mg/dL (74-106); LIPASE 240 U/L (73-393); MAGNESIUM 1.9 mg/dL (1.8-2.4); POTASSIUM 3.9 mmol/L (3.5-5.1); SODIUM 140 mmol/L (136-145)
[2018-01-24 09:01] LABS: BASO % 0.4 % (0-2.0); EOS % 1.7 % (0-4.5); HEMATOCRIT 24.5 % (32.4-45.2); HEMOGLOBIN 7.6 GM/dL (10.7-15.3); LYMPH % 43.5 % (8-40); MCH 20.8 pg (25.7-33.7); MEAN CELL VOLUME 67.1 fl (80-96); MEAN PLT VOLUME 11.2 fl (7.5-11.1); NEUT % 44.4 % (42.8-82.8); PLATELET COUNT 159 K/MM3 (134-434); RBC 3.65 M/mm3 (3.60-5.2); RDW 19.3 % (11.6-15.6)
[2018-01-24] MEDS: PANTOPRAZOLE SODIUM 40 MG VIAL IVPUSH SCH (11:03)
[2018-01-24] MEDS ORDERED: PANTOPRAZOLE SODIUM 40 MG VIAL ONE (11:10)
--- NOTE | 2018-01-24 11:35 | CONSULT ---
- Consultation REQUESTING PROVIDER: Hopsitalist CONSULT REQUEST: We have been asked to surgically evaluate this patient for abdominal pain. PCP:Shira Elliott HISTORY OF PRESENT ILLNESS: OBEY who is a 37 y/o female for evaluation and management of abdominal pain; 1 week of ? crampy ?abdominal pain which got worse 2 days ago and then became associated w/ nausea and vomiting and right sided back pain; she came to the ER for evaluation. She denies any other GI//FLAME CHANNELER c/o; her LMP ended a few days ago PMHx: none; PSHx: abdominoplasy/sleeve gastrectomy Home Medications Medication Instructions Recorded NK [No Known Home Medication] 02/08/16 Allergies Allergy/AdvReac Type Severity Reaction Status Date / Time No Known Allergies Allergy Verified 01/23/18 14:51 PHYSICAL EXAM: GENERAL: Awake, alert, and fully oriented, in no acute distress. HEAD: Normal with no signs of trauma. EYES: sclera anicteric, conjunctiva clear. NECK: Normal ROM, supple without lymphadenopathy, JVD, or masses. ABDOMEN: Soft, nontender, not distended, normoactive bowel sounds, no guarding, no rebound, no masses. No organomegaly. Abdominal wall changes c/w abdominoplasty; no hernias. MUSCULOSKELETAL: Normal ROM at all joints. No bony deformities or tenderness. No CVA tenderness. UPPER EXTREMITIES: 2+ pulses, warm, well-perfused. No cyanosis. Cap refill <2 seconds. No peripheral edema. LOWER EXTREMITIES: 2+ pulses, warm, well-perfused. No calf tenderness. No peripheral edema. NEUROLOGICAL: Normal speech, gait not observed. PSYCH: Cooperative. Good eye contact. Appropriate mood and affect. SKIN: Warm, dry, normal turgor, no rashes or lesions noted. Vital Signs Temperature 98.0 F 01/24/18 11:04 Pulse Rate 71 01/24/18 11:04 Respiratory Rate 18 01/24/18 11:04 Blood Pressure 107/73 01/24/18 11:04 O2 Sat by Pulse Oximetry (%) 100 01/24/18 11:04 Lab Results WBC 3.0 K/mm3 (4.0-10.0) L 01/24/18 07:05 RBC 3.65 M/mm3 (3.60-5.2) 01/24/18 07:05 Hgb 7.6 GM/dL (10.7-15.3) L 01/24/18 07:05 Hct 24.5 % (32.4-45.2) L 01/24/18 07:05 MCV 67.1 fl (80-96) L 01/24/18 07:05 MCHC 31.0 g/dl (32.0-36.0) L 01/24/18 07:05 RDW 19.3 % (11.6-15.6) H 01/24/18 07:05 Plt Count 159 K/MM3 (134-434) 01/24/18 07:05 Sodium 140 mmol/L (136-145) 01/24/18 07:05 Potassium 3.9 mmol/L (3.5-5.1) 01/24/18 07:05 Chloride 109 mmol/L (98-107) H 01/24/18 07:05 Carbon Dioxide 24 mmol/L (21-32) 01/24/18 07:05 Anion Gap 8 MMOL/L (8-16) 01/24/18 07:05 BUN 11 mg/dL (7-18) 01/24/18 07:05 Creatinine 0.9 mg/dL (0.55-1.3) 01/24/18 07:05 Random Glucose 74 mg/dL (74-106) 01/24/18 07:05 Calcium 8.3 mg/dL (8.5-10.1) L 01/24/18 07:05 Blood Type O POSITIVE 01/24/18 06:30 Antibody Screen Negative 01/24/18 06:30 INR 0.96 (0.83-1.09) 01/24/18 07:05 CT scan a/p and US reviewed; HIDA scan results pending. IMP: no evidence of an acute surgical abdomen; I doubt she has acute cholecystitis or biliary dyskinesia PLAN: Would keep NPO pending results of HIDA scan; and will f/u after that. Usama Cristina MD FACS
--- NOTE | 2018-01-24 13:13 | PN ---
Teaching Attending Note Name of Resident: Vanessa Vides ATTENDING PHYSICIAN STATEMENT I saw and evaluated the patient. I reviewed the resident's note and discussed the case with the resident. I agree with the resident's findings and plan as documented. SUBJECTIVE: No fever or chills. reports upper abd pain x 1 week. diarrhea and vomiting x 2 days. reports reflux sx . denies any NSAIDs use . denies hematochezia , melena , and hematemesis . reports heavy periods and poor nutrition OBJECTIVE: NAD , AAOx3 HEENT: NC, AT, MMM, no facial droop . CV: RRR Lungs: CTAB Abd: soft, TTP in epigastric area and RUQ, Neg Martinez's , hyperactive BS Ext: no edema, no erythema . ASSESSMENT AND PLAN: 37 y/o lady with h/o iron def anemia, heavy menses, colitis, gastric sleeve sx , and thrombocytopenia who presented with Abd pain. 1- Abd pain: no clear etiology. ? gastritis , less likely cholecystitis . No evidence of obstruction on CT scan. - follow HIDA - try PPI - if HIda is neg ,might consult GI - NPO until after HIDD results - IVF - rectal exam to be performed by resident, ? bleeding PUD - avoid NSAIDs 2- Microcytic anemia: likely due to heavy menses and malnutrition after gastric sleeve, but can't r/o slowly bleeding PUD - rectal exam. - OB - iron studies pending - not compliant with iron suppt at home 3- DVT P X: SCDS
[2018-01-24] MEDS: ACETAMINOPHEN 325 MG TABLET (FP) PO PRN (13:40)
[2018-01-24] MEDS ORDERED: ACETAMINOPHEN 325 MG TABLET (FP) ONE (13:41)
[2018-01-24] MEDS ORDERED: IRON SUCROSE INJECTION 100 MG in SODIUM CHLORIDE 95 ML IVPB ONE (16:30)
[2018-01-24] MEDS: ONDANSETRON 4 MG/2 ML VIAL IVPUSH PRN (16:40)
[2018-01-24] MEDS ORDERED: ACETAMINOPHEN 1000 MG/100 ML VIAL (NON FORMULARY) IVPB ONE (18:00)
[2018-01-24] MEDS ORDERED: ACETAMINOPHEN INJECTION 100 ML IVPB ONE (18:28)
[2018-01-24 20:56] VITALS: BMI 21.6
[2018-01-24] MEDS: SUCRALFATE 1 GM/10 ML UNIT DOSE CUPS PO SCH (22:23)
[2018-01-25] MEDS: SUCRALFATE 1 GM/10 ML UNIT DOSE CUPS PO SCH ×5 (03:22→21:37)
[2018-01-25] MEDS: LACTATED RINGERS SOLUTION 1,000 ML IV SCH (03:23)
[2018-01-25 08:15] LABS: ANION GAP 8 MMOL/L (8-16); BLOOD UREA NITROGEN 7 mg/dL (7-18); CALCIUM 8.4 mg/dL (8.5-10.1); CHLORIDE 107 mmol/L (98-107); CO2 23 mmol/L (21-32); CREATININE 0.8 mg/dL (0.55-1.3); GLUCOSE,RANDOM 79 mg/dL (74-106); POTASSIUM 3.8 mmol/L (3.5-5.1); SODIUM 139 mmol/L (136-145)
[2018-01-25] MEDS: PANTOPRAZOLE SODIUM 40 MG VIAL IVPUSH SCH (09:56)
[2018-01-25 10:00] LABS: HEMATOCRIT 22.5 % (32.4-45.2); HEMOGLOBIN 7.3 GM/dL (10.7-15.3); MCH 21.4 pg (25.7-33.7); MCHC 32.2 g/dl (32.0-36.0); MEAN CELL VOLUME 66.6 fl (80-96); MEAN PLT VOLUME 10.7 fl (7.5-11.1); PLATELET COUNT 148 K/MM3 (134-434); RBC 3.38 M/mm3 (3.60-5.2); RDW 19.4 % (11.6-15.6); WHITE BLOOD COUNT 3.3 K/mm3 (4.0-10.0)
[2018-01-25 10:10] LABS: SERUM IRON SATURATION 3 % (15-55); TOTAL IRON BINDING CAPACITY 370 ug/dL (250-450); UIBC 358 ug/dL (131-425)
--- NOTE | 2018-01-25 12:02 | CON.GI ---
Consult Consult Specialty:: GI Referred by:: Dr Guerra Reason for Consultation:: Abdominal pain, anemia - History of Present Illness Chief Complaint: LLQ quadrant and epigastric abdominal discomfort for 2 years, worse on day of admission History of Present Illness: 37 y.o. woman admitted with complaints of largely LLQ abdominal discomfort. Patient says if she eats "acid" foods she gets LLQ discomfort as well as epigastric discomfort. This has been her pattern since her gastric sleeve procedure performed 2 years ago in the [place]. Of note, she had to return to the OR the day after the initial surgery because of a leak. Of note, she has become progressively anemic over the past two years. She admits to heavy menses but does not believe they are out of the usual. She has not had an EGD since her gastric sleeve procedure and has never had a colonoscopy. Currently, she feels able to eat. 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 History of Recent Travel: Yes ([facility]) Home Medications - Allergies Allergies/Adverse Reactions: Allergies Allergy/AdvReac Type Severity Reaction Status Date / Time No Known Allergies Allergy Verified 01/23/18 14:51 - Home Medications Home Medications: Ambulatory Orders NK [No Known Home Medication] 02/08/16 Family Disease History - Family Disease History Family Disease History: Other: Father (HTN), Mother (HTN, Hypothyroidism) Review of Systems - Review of Systems Constitutional: reports: Weakness Physical Exam-GI Vital Signs: Vital Signs Temperature 98.1 F 01/25/18 08:00 Pulse Rate 82 01/25/18 08:00 Respiratory Rate 20 01/25/18 11:22 Blood Pressure 111/70 01/25/18 08:00 O2 Sat by Pulse Oximetry (%) 98 01/25/18 11:22 Constitutional: Yes: Pallor ...Rectal Exam: Yes: Deferred Labs: CBC, BMP 01/25/18 07:00 01/25/18 07:00 INR, PTT INR 0.96 (0.83-1.09) 01/24/18 07:05 Imaging - Results Cat Scan: Report Reviewed, Image Reviewed Problem List - Problems (1) LLQ abdominal pain Code(s): R10.32 - LEFT LOWER QUADRANT PAIN (2) Anemia Code(s): D64.9 - ANEMIA, UNSPECIFIED Qualifiers: Anemia type: iron deficiency Iron deficiency anemia type: other iron deficiency Qualified Code(s): D50.8 - Other iron deficiency anemias Assessment/Plan Iron deficiency anemia and LLQ discomfort. A gastric sleeve procedure by itself can lead to iron deficiency anemia, particularly in women. She has an IUD which can also lead to heavier menses. I would suggest: 1) Feed patient. She has no sign of any acute GI process that I can determine. 2) Replenish iron, either with oral iron and ascorbic acid, or, if she will not tolerate p.o., with IV infusion. This can be done as an outpatient. 3) EGD and colonoscopy to be arranged as an outpatient to exclude gastric or colonic malignancy. There is no need to keep her in the hospital to arrange these procedures.
[2018-01-25] MEDS: ACETAMINOPHEN 325 MG TABLET (FP) PO PRN ×2 (13:06→21:37)
[2018-01-25] MEDS: ONDANSETRON 4 MG/2 ML VIAL IVPUSH PRN (13:50)
--- NOTE | 2018-01-25 14:25 | PN ---
Teaching Attending Note Name of Resident: Cynthia Guerra ATTENDING PHYSICIAN STATEMENT I saw and evaluated the patient. I reviewed the resident's note and discussed the case with the resident. I agree with the resident's findings and plan as documented. SUBJECTIVE: No fever or chills. abd pain has improved. minimal nausea. no BM OBJECTIVE: NAD CV: RRR Lungs: CTAB Abd: soft, minimal TTP in epigastric area , no rebound tenderness or guarding Ext: no edema, no erythema . ASSESSMENT AND PLAN: 37 y/o lady with h/o iron def anemia, heavy menses, colitis, gastric sleeve sx , and thrombocytopenia who presented with Abd pain. 1- Abd pain: no clear etiology. ? gastritis vs PUD. Neg HIDA - cont PPI for now - HP stool Ag not done yet. no BM - seen by GI, no need for inpatient EGD. - upgrade diet 2- Iron def anemia : likely due to heavy menses and malnutrition after gastric sleeve - iron supplements - EGD and colo as out pt 3- Dispo: if she tolerates diet , can dc today
--- NOTE | 2018-01-25 14:40 | PN ---
Physical Exam: SUBJECTIVE: Patient seen and examined at bedside. C/o dull LLQ pain. Also w/ nausea w/o emesis. Denies MAX, fever, chills, SOB, chest pain, or changes in urinary or bowel fnc. OBJECTIVE: Vital Signs Period Temp Pulse Resp BP Sys/[place] Pulse Ox Last 24 Hr 97.8 F-98.8 F 56-82 16-20 103-117/62-76 98-98 GENERAL: The patient is resting in bed. awake, alert, and fully oriented. in NAD HEAD: Normal with no signs of trauma. EYES: PERRL, extraocular movements intact, sclera anicteric, conjunctiva clear. ENT: Ears normal, nares patent, oropharynx clear without exudates, dry MM NECK: Trachea midline, supple. LUNGS: Breath sounds equal, clear to auscultation bilaterally, no wheezes, no crackles, no accessory muscle use. HEART: Regular rate and rhythm, S1, S2 without murmur, rub or gallop. ABDOMEN: Soft, +TTP -LLQ. no guarding or rigidity EXTREMITIES: 2+ pt pulses, warm, well-perfused, no edema. NEUROLOGICAL: Cranial nerves II through XII grossly intact. Laboratory Results - last 24 hr 01/24/18 01/25/18 01/25/18 06:15 07:00 07:00 WBC 3.3 L RBC 3.38 L Hgb 7.3 L Hct 22.5 L MCV 66.6 L MCH 21.4 L MCHC 32.2 RDW 19.4 H Plt Count 148 MPV 10.7 Sodium 139 Potassium 3.8 Chloride 107 Carbon Dioxide 23 Anion Gap 8 BUN 7 Creatinine 0.8 Creat Clearance w eGFR > 60 Random Glucose 79 Calcium 8.4 L Iron 12 L TIBC 370 Iron Saturation 3 L Active Medications Generic Name Dose Route Start Last Admin Trade Name Freq PRN Reason Stop Dose Admin Acetaminophen 650 mg 01/24/18 13:06 01/25/18 13:06 Tylenol - PO 650 mg Q6H PRN Administration PAIN LEVEL 6-10 Lactated Ringer's 1,000 mls @ 75 mls/hr 01/24/18 00:15 01/25/18 03:23 Lactated Ringers Solution IV 75 mls/hr ASDIR TOMASZ Administration Ondansetron HCl 4 mg 01/24/18 00:04 01/24/18 16:40 Zofran Injection IVPUSH 4 mg Q6H PRN Administration NAUSEA Pantoprazole Sodium 40 mg 01/24/18 10:00 01/25/18 09:56 Protonix Iv IVPUSH 40 mg DAILY TOMASZ Administration Sucralfate 1 gm 01/24/18 16:00 01/25/18 09:55 Carafate Oral Suspension - PO 1 gm Q6H TOMASZ Administration ASSESSMENT/PLAN: This is a 37 y/o F with a history of colitis, anemia, gastric sleeve sx, and thrombocytopenia who was admitted for abdominal pain. #Abdominal pain 2/2 ?gastritis -still with LLQ discomfort. HIDA (-) for obstruction. sx may be from gastritis, ?PUD. has hx anemia -may also be 2/2 complication from past gastric sleeve (2016) -c/w protonix, sucralfate -h pylori stool Ag - ordered, pending -diet has been advanced as per GI; no signs of acute GI process. if tolerates, will be able to d/c -EGD, colonoscopy as outpt #iron deficiency anemia -likely 2/2 heavy menses -will need cont'd CLINICAL REHABILITATION AIDE f/u - assess for fibroids. can be done as outpt -iron supplementation #F/E/N LR 75 cc/hr; will d/c once tolerating diet continue to follow lytes regular diet #PPX SCD's #Dispo will be able to d/c if carlito diet; currently with nausea Visit type - Emergency Visit Emergency Visit: No - New Patient This patient is new to me today: No - Critical Care Critical Care patient: No
--- NOTE | 2018-01-25 17:43 | CON.OBG ---
Consult Consult Specialty:: PSYCH SPECIALIST - History of Present Illness Chief Complaint: Epigastric pain History of Present Illness: Patient is a 37 y/o F w/ PMHx colitis in 2016, chronic anemia non-compliant w/ iron therapy, abdominoplasty in 2008, gastric sleeve Sx in 2015 performed in [facility] 2 months prior to onset of colitis, now p/w 1 week dull continuous abdominal pain 8/10 in severity primarily in LLQ but present throughout abdomen. Additionally complains of watery diarrhea and nausea over the same period, limited PO intake d/t fear of provoking diarrhea. LMP began 5 days ago and ended today with heavier passage of blood than usual. No f/c, no CP , no SOB, no shoulder pain. In ED received 1L NS bolus, ketorolac, zofran. RUQ US demonstrated no cholelithiasis, a small amount of biliary sludge, and trace pericholecystic fluid. CT a/p demonstrated no enterocolitis, identified gastric sleeve post-surgical changes, and found a small amount of pericholecystic fluid . CBC showed Hb 7.7 and WBC 3.2, otherwise labs and VS wnl. PSYCH SPECIALIST consulted I came to see patient, she's Para 2, with IUD in place for almost 10 years. She admits to prolonged menses ( 7 days ). She denies any dizziness nor fatigue. Imaging studies failed to show any PSYCH SPECIALIST pathology. 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 History of Recent Travel: Yes ([facility]) Home Medications - Allergies Allergies/Adverse Reactions: Allergies Allergy/AdvReac Type Severity Reaction Status Date / Time No Known Allergies Allergy Verified 01/23/18 14:51 - Home Medications Home Medications: Ambulatory Orders NK [No Known Home Medication] 02/08/16 Family Disease History - Family Disease History Family History: Unremarkable Family Disease History: Other: Father (HTN), Mother (HTN, Hypothyroidism) Review of Systems - Review of Systems Constitutional: denies: Malaise, Weakness Eyes: reports: No Symptoms HENT: reports: No Symptoms Neck: reports: No Symptoms Cardiovascular: reports: No Symptoms Respiratory: reports: No Symptoms Gastrointestinal: reports: No Symptoms Genitourinary: denies: Vaginal Bleeding Musculoskeletal: reports: No Symptoms Neurological: reports: No Symptoms Psychiatric: reports: No Symptoms Pain Intensity: 0 Physical Exam-PSYCH SPECIALIST Vital Signs: Vital Signs Temperature 97.4 F L 01/25/18 17:18 Pulse Rate 72 01/25/18 17:18 Respiratory Rate 18 01/25/18 17:18 Blood Pressure 132/63 01/25/18 17:18 O2 Sat by Pulse Oximetry (%) 98 01/25/18 11:22 Constitutional: No: No Distress Eyes: Yes: Conjunctiva Clear HENT: Yes: Atraumatic Neck: Yes: Supple Cardiovascular: No: Tachycardia Respiratory: Yes: Regular Gastrointestinal: Yes: Normal Bowel Sounds External Genitalia: Yes: Normal Vaginal Exam: Yes: Normal Cervix: Yes: Normal Uterus: Yes: Normal Neurological: Yes: Alert, Oriented ...Motor Strength: WNL Psychiatric: Yes: Alert, Oriented Labs: CBC, BMP 01/25/18 07:00 01/25/18 07:00 Assessment/Plan Abdominal pain Anemia Menorrhagia ( most likely due to intrauterine device ) Consider removing IUD and endometrial biopsy as outpatient. Follow up with PSYCH SPECIALIST as outpatient
[2018-01-26] MEDS: SUCRALFATE 1 GM/10 ML UNIT DOSE CUPS PO SCH ×2 (04:23→10:07)
[2018-01-26 07:47] LABS: BASO % 0.6 % (0-2.0); EOS % 1.5 % (0-4.5); HEMATOCRIT 23.5 % (32.4-45.2); LYMPH % 47.3 % (8-40); MCHC 29.7 g/dl (32.0-36.0); MEAN CELL VOLUME 67.1 fl (80-96); MEAN PLT VOLUME 10.2 fl (7.5-11.1); MONO % 11.6 % (3.8-10.2); PLATELET COUNT 156 K/MM3 (134-434); RDW 19.2 % (11.6-15.6)
[2018-01-26 07:55] LABS: MCH 19.9 pg (25.7-33.7)
[2018-01-26 08:20] LABS: ANION GAP 7 MMOL/L (8-16); BLOOD UREA NITROGEN 7 mg/dL (7-18); CALCIUM 8.4 mg/dL (8.5-10.1); CHLORIDE 108 mmol/L (98-107); CO2 25 mmol/L (21-32); CREATININE 0.8 mg/dL (0.55-1.3); GLUCOSE,RANDOM 81 mg/dL (74-106); MAGNESIUM 1.8 mg/dL (1.8-2.4); PHOSPHOROUS 3.5 mg/dL (2.5-4.9); POTASSIUM 3.8 mmol/L (3.5-5.1); SODIUM 140 mmol/L (136-145)
[2018-01-26] MEDS: PANTOPRAZOLE SODIUM 40 MG VIAL IVPUSH SCH (10:07)
[2018-01-26] MEDS ORDERED: IRON SUCROSE INJECTION 100 MG in SODIUM CHLORIDE 95 ML IVPB ONE (12:28)
--- NOTE | 2018-01-26 12:54 | PN ---
Progress Note (short form) - Note Progress Note: Subjective: abd pain much improved. No n/v overnight or this am . could tolerated liquids. Objective: Vital Signs: Last Vital Signs Temp Pulse Resp BP Pulse Ox 98.2 F 68 18 86/46 L 98 01/26/18 05:00 01/26/18 05:00 01/26/18 05:00 01/26/18 05:00 01/26/18 03:00 Laboratory Results - last 24 hr 01/26/18 01/26/18 07:00 07:00 WBC 3.0 L RBC 3.50 L Hgb 7.0 L Hct 23.5 L MCV 67.1 L MCH 19.9 L MCHC 29.7 L RDW 19.2 H Plt Count 156 MPV 10.2 Absolute Neuts (auto) 1.2 L Neutrophils % 39.0 L Lymphocytes % 47.3 H Monocytes % 11.6 H Eosinophils % 1.5 Basophils % 0.6 Nucleated RBC % 0 Sodium 140 Potassium 3.8 Chloride 108 H Carbon Dioxide 25 Anion Gap 7 L BUN 7 Creatinine 0.8 Creat Clearance w eGFR > 60 Random Glucose 81 Calcium 8.4 L Phosphorus 3.5 Magnesium 1.8 Ferritin Cancelled Physical Exam: NAD , looks much better CV: RRR Lungs: CTAB Abd: soft, minimal TTP in epigastric area , no rebound tenderness or guarding Ext: no edema, no erythema . ASSESSMENT AND PLAN: 37 y/o lady with h/o iron def anemia, heavy menses, colitis, gastric sleeve sx , and thrombocytopenia who presented with Abd pain. 1- Abd pain: no clear etiology. ? gastritis vs PUD. Neg HIDA - continue PPI after dc - HP stool Ag not done yet. no BM -f/u wit GI for EGD and colo - if she tolerates soft, then she can go florentino dl soft. if not , she can take full liquid diet 2- Iron def anemia : likely due to heavy menses and malnutrition after gastric sleeve - Hb dropped to 7.3 . discussed with patient transfusion , she declined. - will give iron transfusion x 1 . refer to heme for full course of transfusion - she is due for IUD change thi smonth. Advised to use Mirena instead of copper IUD - iron supplements po at dc - EGD and colo as out pt 3- Dispo:MS home today Visit type - Emergency Visit Emergency Visit: Yes ED Registration Date: 01/23/18 Care time: The patient presented to the Emergency Department on the above date and was hospitalized for further evaluation of their emergent condition. - New Patient This patient is new to me today: No - Critical Care Critical Care patient: No
[2018-01-26 14:57] VITALS: BP 98/63; PULSE 77; TEMP 97.7
--- NOTE | 2018-01-27 15:42 | DS ---
Physical Exam: SUBJECTIVE: Patient is a 37 y/o female with a history of colitis and anemia who is admitted for abdominal pain. Patient notes he pain has improved. OBJECTIVE: Vital Signs Temperature 97.7 F 01/26/18 13:00 Pulse Rate 77 01/26/18 13:00 Respiratory Rate 18 01/26/18 13:00 Blood Pressure 98/63 01/26/18 13:00 O2 Sat by Pulse Oximetry (%) 98 01/26/18 11:00 PHYSICAL EXAM GENERAL: The patient is awake, alert, and fully oriented, in no acute distress. HEAD: Normal with no signs of trauma. EYES: PERRL, extraocular movements intact. LUNGS: Breath sounds equal, clear to auscultation bilaterally, no wheezes, no crackles, no accessory muscle use. HEART: Regular rate and rhythm, S1, S2 without murmur, rub or gallop. ABDOMEN: positive bowel sounds, tendernes sin RUQ and LUQ, positive murphys sign , positive rebound, CVA tenderness bilaterally RECTAL: no external lesions, no internal masses felt, no fissures noted, no blood on exam EXTREMITIES: 2+ pulses, warm, well-perfused, no edema. NEUROLOGICAL: Cranial nerves II through XII grossly intact. Normal speech, gait not observed. PSYCH: Normal mood, normal affect. SKIN: Warm, dry, normal turgor, no rashes or lesions noted LABS HOSPITAL COURSE: Date of Admission:01/23/18 Patient presented for abdominal pain. Seen by surgery and not candidate for surgery at this time. Pain improved and tolerated diet. Patient presented with anemia at 7.6. Evaluated by GI, feels the anemia could be 2/2 to gastric sleeve with heavy menses. Suggested f/u with iron and ascorbic acid. Suggested EGD and colonscopy as an outpatient. Patient also seen by OBGYN, suggestev menorrhagia may be 2/2 to IUD. Patient should f/u as an outpatient. Abd US: no evidence of choelithiasis, small amount of inspissated bile/sludge at base of gallbladder, possible acute cholecystitis HIDA scan - filling of gallbladder excludes acute cystic duct obstruction Urine Cx: no growth Date of Discharge: 01/27/18 Minutes to complete discharge: 35 Discharge Summary Reason For Visit: RIGHT UPPER QUADRANT ABDOMINAL PAIN Condition: Improved - Instructions Diet, Activity, Other Instructions: - zander follow up with your PCP in 1 week for repeat blood work ( blood count ) - please follow with Dr. gallagher, from GI, for endoscopy and colonoscopy - please follow with hematology for complete work up of your anemia, and for iron transfusion - please take iron orally three times a day - diet as tolerated either liquids or soft diet . - call your MD with fever , chills, abdominal distention or bleeding or worsening pain - please take protonix dialy for now until endoscopy is done and GI advise after then - consider changing copper IUD to Mirena . Panfilo gillis Referrals: Mirna Espinoza [Other] - 1 Week Salomon Kitchen MD [Staff Physician] - 2 Weeks Kenneth Gallagher MD [Staff Physician] - 2 Weeks Disposition: HOME - Home Medications Comprehensive Discharge Medication List: Ambulatory Orders Ferrous Sulfate [Iron] 325 mg PO TID #90 tablet 01/26/18 Pantoprazole Sodium [Protonix] 40 mg PO DAILY #30 tablet. 01/26/18 This patient is new to me today: No Emergency Visit: No Critical Care patient: No - Discharge Referral Referred to [facility] No
== END 2018-01-26 15:01 | disposition home or self-care (01) ==
LOC: JER 14:39 → JERBED 22:23 → J8W 01-24 20:39
PROVIDERS: ADMIT Internal Medicine; ATTEND Internal Medicine
PROC: 3E033GC Introduction of Other Therapeutic Substance into Peripheral Vein, Percutaneous Approach (ICD-10-PCS; principal; 2018-01-25)
PROC: 3E033GC Introduction of Other Therapeutic Substance into Peripheral Vein, Percutaneous Approach (ICD-10-PCS; 2018-01-25)
PROC: 3E0333Z Introduction of Anti-inflammatory into Peripheral Vein, Percutaneous Approach (ICD-10-PCS; 2018-01-25)
PROC: 3E033GC Introduction of Other Therapeutic Substance into Peripheral Vein, Percutaneous Approach (ICD-10-PCS; 2018-01-25)
DX: R10.9 Unspecified abdominal pain (principal); D50.9 Iron deficiency anemia, unspecified; D69.6 Thrombocytopenia, unspecified; Z97.5 Presence of (intrauterine) contraceptive device; N92.0 Excessive and frequent menstruation with regular cycle; Z98.84 Bariatric surgery status
CPT/HCPCS: 36415; 74177-TC; 76705-TC; 78226-TC; 80048; 80053; 81003; 82272; 82607; 82728; 82746; 83540; 83550; 83690; 83735; 84100; 84703; 85025; 85027; 85044; 85610; 85651; 85730; 86140; 86850; 86900; 86901; 87086; 99285-25; A9537; G0378; J0131; J1756; J7030; Q9967

== ENCOUNTER 2020-08-24 20:47 | Emergency (ER) | payer BC, OTHER ==
[2020-08-24 21:00] VITALS: TEMP 98.4; BMI 22.9
[2020-08-24 22:30] LABS: BASO % 0.7 % (0-2.0); EOS % 0.7 % (0-4.5); HEMATOCRIT 32.2 % (32.4-45.2); HEMOGLOBIN 10.4 GM/dL (10.7-15.3); LYMPH % 33.6 % (8-40); MCH 26.6 pg (25.7-33.7); MCHC 32.2 g/dl (32.0-36.0); MEAN CELL VOLUME 82.8 fl (80-96); MEAN PLT VOLUME 9.8 fl (7.5-11.1); MONO % 8.7 % (3.8-10.2); NEUT % 56.3 % (42.8-82.8); PLATELET COUNT 124 10^3/uL (134-434); RBC 3.89 M/mm3 (3.60-5.2); WHITE BLOOD COUNT 4.7 K/mm3 (4.0-10.0)
[2020-08-25 01:18] VITALS: BP 101/66; PULSE 76
== END 2020-08-25 01:18 | disposition home or self-care (01) ==
LOC: JER 20:47
DX: O03.9 Complete or unspecified spontaneous abortion without complication (principal)
CPT/HCPCS: 36415; 76817-TC; 84702; 85025; 86850; 86900; 86901; 99284-25

== ENCOUNTER 2023-04-27 10:11 | Emergency (ER) | payer BC, OTHER ==
[2023-04-27 10:19] VITALS: BP 94/53; PULSE 71; RESP 18; TEMP 98; BMI 20.7
== END 2023-04-27 11:03 | disposition left against medical advice (07) ==
LOC: JER 10:11
DX: R07.9 Chest pain, unspecified (principal); R06.02 Shortness of breath; M54.9 Dorsalgia, unspecified
CPT/HCPCS: 93005; 93010; 99283-25

== ENCOUNTER 2023-08-25 12:48 | Emergency (ER) | payer BC, OTHER ==
[2023-08-25 13:01] VITALS: BP 101/57; PULSE 82; RESP 20; TEMP 98.3; BMI 22.9
[2023-08-25] MEDS ORDERED: ACETAMINOPHEN 500 MG TABLET (FP) ONE (13:40)
[2023-08-25] MEDS ORDERED: IBUPROFEN 600 MG TABLET (FP) PO ONE (13:40)
[2023-08-25] MEDS: IBUPROFEN 600 MG TABLET (FP) PO ONE (13:42)
[2023-08-25] MEDS: ACETAMINOPHEN 500 MG TABLET (FP) PO ONE (13:43)
== END 2023-08-25 13:46 | disposition home or self-care (01) ==
LOC: JERFT 12:48
DX: M54.2 Cervicalgia (principal); M54.50 Low back pain, unspecified; V49.40XA Driver injured in collision with unspecified motor vehicles in traffic accident, initial encounter; Y92.410 Unspecified street and highway as the place of occurrence of the external cause
CPT/HCPCS: 99283-25

== ENCOUNTER 2023-12-04 11:57 | Day surgery (SDC) | payer OTHER ==
[2023-12-04] MEDS: DIPHENHYDRAMINE 25 MG in SODIUM CHLORIDE 50 ML IVPB PRN (12:30)
[2023-12-04] MEDS: FERRIC CARBOXYMALTOSE 750 MG in SODIUM CHLORIDE 250 ML IVPB ONE (13:07)
[2023-12-04 14:42] VITALS: RESP 16; TEMP 98.7
[2023-12-04 14:44] VITALS: BP 93/52; PULSE 78
== END 2023-12-04 14:30 | disposition home or self-care (01) ==
LOC: JONCNONCHE 11:57 → J7W 12:00 → JONCNONCHE 14:30
PROVIDERS: ATTEND Internal Medicine Hematology & Oncology
PROC: 3E033GC Introduction of Other Therapeutic Substance into Peripheral Vein, Percutaneous Approach (ICD-10-PCS; principal; 2023-12-04)
DX: D50.0 Iron deficiency anemia secondary to blood loss (chronic) (principal)
CPT/HCPCS: 96365; J1439